=== PATIENT | male | born 1975 | race Caucasian/White ===

== ENCOUNTER 2018-07-11 08:41 | Emergency (ER) | payer OTHER ==
[~2018-07-11] VITALS: Ht 167.6 cm; Wt 68.2 kg
[2018-07-11 09:40] VITALS: BP 145/96
== END 2018-07-11 10:11 | disposition home or self-care (01) ==
LOC: EMS 08:44
DX: G56.02 Carpal tunnel syndrome, left upper limb (principal); F17.210 Nicotine dependence, cigarettes, uncomplicated
CPT/HCPCS: 99406